=== PATIENT | female | born 2000 | race Two or more races ===

== ENCOUNTER 2020-02-16 11:35 | Emergency (ER) | payer OTHER ==
[2020-02-16] MEDS ORDERED: FAMOTIDINE INJ/PF 20 MG/2 ML SDV IV ONE (11:39)
[2020-02-16] MEDS ORDERED: EPINEPHRINE INJ/PF 1 MG/1 ML AMPULE IM ONE (11:39)
[2020-02-16] MEDS ORDERED: METHYLPREDNISOLONE INJ 125 MG/2 ML SDV IV ONE (11:39)
[2020-02-16] MEDS ORDERED: NORMAL SALINE 1000 ML 1,000 ML IV ONE (11:40)
[2020-02-16] MEDS ORDERED: DIPHENHYDRAMINE HCL 50 MG/ML VIAL IV ONE (11:40)
--- NOTE | 2020-02-16 11:44 | ER Document Report ---
ED Medical Screen (RME) - General Chief Complaint: Allergic Reaction Stated Complaint: ALLERGIC REACTION Time Seen by Provider: 02/16/20 11:39 Mode of Arrival: Wheelchair Information source: Patient, Relative - Boyfriend Notes: Otherwise healthy 19-year-old female presents the emergency department complaining of an allergic reaction. Patient's boyfriend states about 45 minutes prior to arrival she was bitten by a bunch of red ants to her legs and feet. He states she started developing hives within a few minutes. She is now complaining of difficulty speaking and difficulty breathing. I was in the lobby as patient was being brought in by boyfriend, she was initially ambulatory and then started to collapse. She did have a syncopal episode in the lobby. I do not appreciate any lip swelling at the time of initial evaluation, she does have diffuse hives. She was brought immediately to trauma 1. I have greeted and performed a rapid initial assessment of this patient. A comprehensive ED assessment and evaluation of the patient, analysis of test results and completion of the medical decision making process will be conducted by additional ED providers. I have specifically instructed the patient or family members with the patient to immediately return to any nursing staff should anything change in the patient's condition or with their chief complaint. - Related Data Allergies/Adverse Reactions: No Known Allergies Allergy (Verified 02/16/20 11:39) Physical Exam - Vital signs Vitals: Temp Pulse Resp BP Pulse Ox 98.8 F 85 17 96/70 L 100 02/16/20 11:39 02/16/20 11:39 02/16/20 11:39 02/16/20 11:39 02/16/20 11:39 Course - Vital Signs Vital signs: Temp Pulse Resp BP Pulse Ox 98.8 F 85 17 96/70 L 100 02/16/20 11:39 02/16/20 11:39 02/16/20 11:39 02/16/20 11:39 02/16/20 11:39
[2020-02-16 11:58] LABS: ABSOLUTE BASOPHILS # (AUTO) 0.1 10^3/uL (0.0-0.2); ABSOLUTE EOSINOPHILS # (AUTO) 0.2 10^3/uL (0.0-0.6); ABSOLUTE LYMPHOCYTES (AUTO) 4.4 10^3/uL (0.5-4.7); ABSOLUTE MONOCYTES (AUTO) 0.7 10^3/uL (0.1-1.4); ABSOLUTE NEUT (AUTO) 4.1 10^3/uL (1.7-8.2); BASOPHILS % (AUTO) 1.2 % (0-2); EOSINOPHILS % (AUTO) 2.5 % (0-6); HEMATOCRIT 48.9 % (36.0-47.0); HEMOGLOBIN 16.6 g/dL (12.0-15.5); LYMPHOCYTES % (AUTO) 45.9 % (13-45); MEAN CORPUSCULAR HEMOGLOBIN 29.9 pg (27.0-33.4); MEAN CORPUSCULAR VOLUME 88 fl (80-97); MONOCYTES % (AUTO) 7.5 % (3-13); RED BLOOD COUNT 5.57 10^6/uL (3.72-5.28); RED CELL DISTRIBUTION WIDTH 12.4 % (11.5-14.0); SEGMENTED NEUTROPHILS % (AUTO) 42.9 % (42-78); TOTAL CELLS COUNTED % (AUTO) 100 %; WHITE BLOOD COUNT 9.6 10^3/uL (4.0-10.5)
[2020-02-16 12:18] LABS: PLATELET COUNT 352 10^3/uL (150-450)
[2020-02-16 12:35] LABS: ALBUMIN 4.6 g/dL (3.7-5.6); ALKALINE PHOSPHATASE 66 U/L (50-135); ANION GAP 15 (5-19); ASPARTATE AMINO TRANSFERASE 26 U/L (5-30); BILIRUBIN,DIRECT 0.3 mg/dL (0.0-0.4); BILIRUBIN,TOTAL 0.4 mg/dL (0.2-1.3); BLOOD UREA NITROGEN 12 mg/dL (7-20); CALCIUM 9.8 mg/dL (8.4-10.2); CARBON DIOXIDE 17 mmol/L (22-30); CHLORIDE 108 mmol/L (98-107); GLUCOSE 103 mg/dL (75-110); POTASSIUM 3.6 mmol/L (3.6-5.0); TOTAL PROTEIN 7.9 g/dL (6.3-8.2)
--- NOTE | 2020-02-16 13:55 | ER Document Report ---
ED Allergic Reaction - General Chief Complaint: Allergic Reaction Stated Complaint: ALLERGIC REACTION Time Seen by Provider: 02/16/20 11:39 Mode of Arrival: Wheelchair Information source: Patient - HPI Notes: Patient presents after having ant bites to the lower extremities. She states that she noticed 2 ants on her feet. She states about 45 minutes after the bite she noticed "welts" on her legs and began to feel lightheaded and dizzy. She states she also has some shortness of breath and chest heaviness. This gradual began to become worse so she came to the emergency department. She denies any previous similar reactions. No other known exposures. Patient symptoms seem to get worse with exertion nothing seem to make them better. They were diffuse. They were severe. They were constant. Patient did have an episode of limited responsiveness while in triage and was immediately brought back to the room. - Related Data Allergies/Adverse Reactions: No Known Allergies Allergy (Verified 02/16/20 11:39) Past Medical History - General Information source: Patient, Relative - Boyfriend - Social History Smoking Status: Never Smoker Frequency of alcohol use: None Drug Abuse: None Family History: Reviewed & Not Pertinent Patient has homicidal ideation: No Review of Systems - Review of Systems Constitutional: denies: Chills, Fever Cardiovascular: denies: Chest pain, Palpitations Respiratory: Short of breath. denies: Cough -: Yes All other systems reviewed and negative Physical Exam - Vital signs Vitals: Resp Pulse Ox 15 100 02/16/20 11:36 02/16/20 11:36 Interpretation: Hypotensive, Tachycardic - General General appearance: Appears well, Alert - HEENT Head: Normocephalic, Atraumatic Eyes: Normal Pupils: PERRL - Respiratory Respiratory status: No respiratory distress Chest status: Nontender Breath sounds: Normal Chest palpation: Normal - Cardiovascular Rhythm: Tachycardia Heart sounds: Normal auscultation Murmur: No - Abdominal Inspection: Normal Distension: No distension Bowel sounds: Normal Tenderness: Nontender Organomegaly: No organomegaly - Back Back: Normal, Nontender - Extremities General upper extremity: Normal inspection, Nontender, Normal color, Normal ROM, Normal temperature General lower extremity: Normal inspection, Nontender, Normal color, Normal ROM, Normal temperature, Normal weight bearing. No: Leela's sign - Neurological Neuro grossly intact: Yes Cognition: Normal Orientation: AAOx4 Mony Coma Scale Eye Opening: Spontaneous [place] Coma Scale Verbal: Oriented [place] Coma Scale Motor: Obeys Commands Mony Coma Scale Total: 15 Speech: Normal Motor strength normal: LUE, RUE, LLE, RLE Sensory: Normal - Psychological Associated symptoms: Normal affect, Normal mood - Skin Skin Temperature: Warm Skin Moisture: Dry Skin Color: Erythema Skin Turgor: Loose - Patient has diffuse urticaria on bilateral lower extremities. It is blanching. Course - Re-evaluation Re-evalutation: 02/16/20 13:53 Patient arrived with an allergic reaction. She was having anaphylaxis. Patient's blood pressure was approximately 91 systolic with a tachycardic heart rate. She also was having some significant decrease of mentation. After fluids, steroids, antihistamines, and epinephrine patient is significantly better. She has been observed for approximately 2 hours. Subjectively she states that she feels much better no longer feels short of breath or lightheaded. Objectively her vital signs are better. She is mildly tachycardic but her blood pressure is normal. She was able to ambulate to the restroom. Patient's rash is also significantly decreased. Patient never had any abnormalities on respiratory exam. - Vital Signs Vital signs: Temp Pulse Resp BP Pulse Ox 98.8 F 85 16 106/65 98 02/16/20 11:39 02/16/20 11:39 02/16/20 13:34 02/16/20 13:34 02/16/20 13:34 - Laboratory Result Diagrams: 02/16/20 11:45 02/16/20 11:45 Laboratory results interpreted by me: 02/16/20 02/16/20 11:45 11:45 RBC 5.57 H Hgb 16.6 H Hct 48.9 H Lymph % (Auto) 45.9 H Chloride 108 H Carbon Dioxide 17 L Critical Care Note - Critical Care Note Total time excluding time spent on procedures (mins): 35 Comments: Approximate 35 minutes of critical care time were spent on this patient. This included multiple reassessments. It also included reviewing documentation and laboratories. Discharge - Discharge Clinical Impression: Ant sting Anaphylactic reaction Qualifiers: Encounter type: initial encounter Qualified Code(s): T78.2XXA - Anaphylactic shock, unspecified, initial encounter Condition: Stable Disposition: HOME, SELF-CARE Instructions: Anaphylaxis Kit ([facility]) Prescriptions: Prednisone [Deltasone 20 mg Tablet] 3 tab PO DAILY 5 Days tablet Epinephrine [Epipen] 0.3 mg IJ ONCE PRN 1 Days #1 auto.injct PRN Reason: Forms: Return to Work Referrals: [facility] [Provider Group] - Follow up as needed
[2020-02-16 14:16] VITALS: BP 101/65
== END 2020-02-16 14:16 | disposition home or self-care (01) ==
LOC: ER 11:35
DX: T63.421A Toxic effect of venom of ants, accidental (unintentional), initial encounter (principal); T78.2XXA Anaphylactic shock, unspecified, initial encounter; Y92.009 Unspecified place in unspecified non-institutional (private) residence as the place of occurrence of the external cause; R06.02 Shortness of breath; R09.89 Other specified symptoms and signs involving the circulatory and respiratory systems; R00.0 Tachycardia, unspecified; L50.9 Urticaria, unspecified
CPT/HCPCS: 99291; 96372; 96361; 96374; 96375; 36415; 85025; 80053; J1200; J0171; J2930; J7030; S0028